=== PATIENT | female | born 1980 | race Native Hawaiian/Other Pacific Islander ===

== ENCOUNTER 2016-10-09 21:26 | Outpatient (CLI) | payer OTHER ==
[2016-10-09 22:44] LABS: PLATELET COUNT 190 K/uL (152-353)
[2016-10-09 23:23] LABS: POTASSIUM 3.7 mmol/L (3.6-5.2); SODIUM 140 mmol/L (136-145)
== END 2016-10-09 22:30 ==
LOC: LABW 21:26
DX: Z79.899 Other long term (current) drug therapy (principal); Z51.81 Encounter for therapeutic drug level monitoring
CPT/HCPCS: 80048; 80061; 84439; 84443; 85027

== ENCOUNTER 2018-09-22 22:14 | Emergency (ER) | payer OTHER ==
[~2018-09-22] VITALS: Ht 167.6 cm; Wt 58.1 kg
[2018-09-22] MEDS ORDERED: ADDERALL XR30 MG PO (22:32)
[2018-09-22] MEDS ORDERED: MONT10TA PO (22:32)
[2018-09-22] MEDS ORDERED: FLONASE AL50 MCG/ACT NAS (22:32)
[2018-09-22] MEDS ORDERED: CLARITIN-D1 TA1 PO (22:32)
[2018-09-22] MEDS ORDERED: ALBU90AE13 INH (22:33)
[2018-09-22 23:20] LABS: PLATELET COUNT 174 K/uL (152-353)
[2018-09-22 23:29] LABS: POTASSIUM 3.6 mmol/L (3.6-5.2)
[2018-09-23 00:46] VITALS: BP 134/88; TEMP 98.1
== END 2018-09-23 00:47 | disposition home or self-care (01) ==
LOC: ED 22:14
PROVIDERS: Emergency Medicine
DX: M54.5 Low back pain (principal); R51 Headache; M25.572 Pain in left ankle and joints of left foot; M25.571 Pain in right ankle and joints of right foot; R20.0 Anesthesia of skin; D72.829 Elevated white blood cell count, unspecified; T43.625A Adverse effect of amphetamines, initial encounter
CPT/HCPCS: 36415; 80053; 81000; 81025; 83036; 85027; 99283

== ENCOUNTER 2021-08-13 19:20 | Emergency (ER) | payer OTHER ==
[~2021-08-13] VITALS: Ht 167.6 cm; Wt 61.3 kg
[~2021-08-13 19:20] MED LIST: ADDERALL XR30 MG PO; ALBU90AE13 INH; CLARITIN-D1 TA1 PO; FLONASE AL50 MCG/ACT NAS; MONT10TA PO
[2021-08-13] MEDS ORDERED: CLINDAMYCIN HY300 MG PO (20:25)
[2021-08-13] MEDS ORDERED: 904272561 PO (20:25)
[2021-08-13 20:44] VITALS: BP 140/78; TEMP 98
== END 2021-08-13 20:47 | disposition home or self-care (01) ==
LOC: ED 19:20
DX: L03.012 Cellulitis of left finger (principal)
CPT/HCPCS: 96372; 99283; J1885